=== PATIENT | female | born 1975 | race Caucasian/White ===

== ENCOUNTER 2021-04-03 06:54 | Day surgery (SDC) | payer BC, OTHER ==
[2021-04-03] MEDS ORDERED: Lactated Ringers 1,000 ML IV SCH (07:00)
[2021-04-03] MEDS ORDERED: Midazolam 1 MG/ML 2 ML SDV ONE (08:50)
[2021-04-03] MEDS ORDERED: fentaNYL 100 MCG/2 ML SDV ONE (08:50)
[2021-04-03] MEDS ORDERED: Propofol 200 MG/20 ML SDV ONE (08:50)
--- NOTE | 2021-04-03 13:48 | OR ---
PREOPERATIVE DIAGNOSES: 1. First screening colonoscopy. 2. History of large precancerous polyps in her father requiring colectomy at age 46. POSTOPERATIVE DIAGNOSES: 1. First screening colonoscopy. 2. History of large precancerous polyps in her father requiring colectomy at age 46. 3. Small rectal polyp, suspect hyperplastic. PROCEDURE PERFORMED: Total flexible colonoscopy with biopsies. ANESTHESIA: MAC anesthesia. COMPLICATIONS: None. BLOOD LOSS: Minimal. FINDINGS: Rectal polyp, 2 mm, cold forceps. START TIME: 0856. CECUM TIME: 904. STOP TIME: 916. BOWEL PREP: [place] class 3. INDICATION FOR PROCEDURE: Paty Guan is a 45-year-old female who presents for her first screening colonoscopy. She denies any bloody or dark black stool, and has no family history of colorectal cancer. However, her dad had a colectomy at age 46 for large precancerous polyps. DETAILS OF PROCEDURE: Informed consent was obtained. The patient was brought to the procedure room and placed in left lateral decubitus position. MAC anesthesia was induced by Anesthesia colleagues without incident. Colonoscope was introduced into the rectum and advanced all the way to the cecum. Appendiceal orifice was photographed. Terminal ileum was intubated and photographed. The colonoscope was then slowly withdrawn. No pathology was identified except for as mentioned in the above findings section. A retroflexed view was obtained and the colonoscope was removed. The patient tolerated the procedure well, was awoken from anesthesia by Anesthesia colleagues without incident. PATHOLOGY: Recommend repeat screening colonoscopy in 5 years given her father's history. RKM: 04/03/2021 09:21:31 MODL: 04/03/2021 12:24:07 /[id number]
== END 2021-04-03 10:40 | disposition home or self-care (01) ==
LOC: VM.SDS 06:54
PROVIDERS: ATTEND Student in an Organized Health Care Education/Training Program
DX: Z12.11 Encounter for screening for malignant neoplasm of colon (principal); K62.1 Rectal polyp; I10 Essential (primary) hypertension; E66.9 Obesity, unspecified; G43.909 Migraine, unspecified, not intractable, without status migrainosus; Z83.71 Family history of colonic polyps; Z79.899 Other long term (current) drug therapy
CPT/HCPCS: 00811; 45380; J2250; J2704; J3010; J7120

== ENCOUNTER 2024-03-17 07:02 | Emergency (ER) | payer OTHER ==
[2024-03-17 07:20] LABS: APPEARANCE,URINE TURBID (CLEAR); BILIRUBIN,URINE LARGE (NEGATIVE); COLOR,URINE RED (YELLOW); GLUCOSE,URINE 100 mg/dL (NEGATIVE); KETONES,URINE 40 mg/dL (NEGATIVE); LEUKOCYTE ESTERASE,URINE LARGE (NEGATIVE); NITRITE,URINE POSITIVE (NEGATIVE); OCCULT BLOOD,URINE LARGE (NEGATIVE); PROTEIN,URINE >=300 mg/dL (NEGATIVE)
[2024-03-17 07:21] LABS: BACTERIA,URINE FEW /HPF (NOT SEEN); RBC,URINE 20-30 /HPF (NOT SEEN); SQUAMOUS EPITHELIAL CELLS,UR OCCASIONAL /HPF (NOT SEEN)
[2024-03-17] MEDS: Phenazopyridine 95 MG Tab PO PRN (07:50)
[2024-03-17] MEDS: Cephalexin 500 MG Cap PO ONE (07:50)
== END 2024-03-17 07:55 | disposition home or self-care (01) ==
LOC: VM.ED 07:02
DX: N39.0 Urinary tract infection, site not specified (principal); I10 Essential (primary) hypertension; Z79.899 Other long term (current) drug therapy
CPT/HCPCS: 81001; 87086; 87088; 87186; 99283; A9270